=== PATIENT | male | born 1990 | race Caucasian/White ===

== ENCOUNTER 2017-02-27 09:43 | Inpatient (IN) | payer OTHER ==
[~2017-02-27] VITALS: Ht 180.3 cm; Wt 56.2 kg
--- NOTE | ~2017-02-27 | A ---
[facility] Nutrition Therapy DATE: 03/01/17 Patient: NADYA COBOS Physician: JUSTEN Address: [address] [place] [address] Room/Bed: [address], Zip: [place] [address] Admit Date: 02/27/17 Date of : [birth year] Height: 5 11 Weight: [phone] NUTRITIONAL ASSESSMENT: REASON: UNINTENTIONAL WEIGHT LOSS, LOW BMI (17.3) PATIENT ADMITTED FOR SI AND DEPRESSION PMH: NONE Anthropometrics: HT: 71", WT: 124#, BMI: 17.3 Labs: 02/28/17- ALL NUTRITIONAL LABS WNL Meds: VISTARIL, MELATONIN Assessment: PATIENT IS A 27 Y/O MALE ADMITTED FOR SI AND DEPRESSION. PATIENT IS CURRENTLY UNEMPLOYED, LIVES WITH HIS BROTHER, SMOKES 1 PPS, HAS DAILY MARIJUANA USE, AND HAS BEEN BINGE DRINKING ETOH. PER NEEDS ASSESSMENT PATIENT HAS A POOR APPETITE WITH A 60# WEIGHT LOSS OVER THE LAST 4-6 MONTHS, AND HE HAS NOT BEEN SLEEPING. NURSING REPORTS FAIR PO INTAKES. THERE IS NO WEIGHT HX RECORDED IN [place]. THERE ARE NO SKIN OR GI ISSUES NOTED ATT. PATIENT IS ON A REGULAR DIET WITH LARGE PORTION ENTREES. PATIENT'S NUTRITIONAL LABS WERE ALL WNL. Dx: INADEQUATE NUTRIENT INTAKE R/T CURRENT CONDITION, DEPRESSION AEB LW BMI, SELF-REPORTED WEIGHT LOSS AND DECREASED APPETITE, NUTRITIONAL RISK POINT Intervention: REGULAR DIET, LARGE PORTIONS, MEDS PER MD, PSYCH Monitoring, Evaluation and Goals: 1. ADEQUATE PO INTAKES >50-75% OF MEALS 2. PREVENT, CORRECT MICRO/MACRO NUTRIENT DEFICIENCIES 3. WEIGHT; PROMOTE A STEADY WEIGHT GAIN TOWARDS A HEALTHY BMI OF 19-25, PREVENT FURTHER WEIGHT LOSS MONITOR: WEIGHTS, LABS, PO/FLUID INTAKES Recommendations: 1. CONTINUE REGULAR DIET WITH LARGE PORTIONS TOLERATED. OFFER SNACKS BETWEEN MEALS 2. ENCOURAGE ADEQUATE PO AND FLUID INTAKES 3. OBTAIN WEIGHTS ROUTINELY (EVERY 3-4 DAYS) 4. IF PO INTAKES ARE BELOW 75% OF MEALS PLEASE ORDER ENSURE BID TO PROMOTE ADEQATE KCAL AND PROTEIN INTAKES [facility] Nutrition Therapy DATE: 03/01/17 Patient: NADYA COBOS Physician: JUSTEN Address: [address] [place] [address] Room/Bed: [address], Zip: [place] [address] Admit Date: 02/27/17 Date of : [birth year] Height: 5 11 Weight: [phone] TO F/U PER PROTOCOL AND PRN R/T PATIENT MILD/MODERATELY COMPROMISED Respectfully, ALEX BATRES RD, LD [facility] cc: client file
--- NOTE | ~2017-02-27 | DS ---
Unit #: [id number] #: [id number] Patient: NADYA COBOS [id number] [place] [address] [id number] MR#: [id number] NAME: NADYA COBOS ROOM: P263 Age: 27 Sex: M Admission Date: 02/27/2017 : 1990 Discharge Date: 03/02/2017 Attending Physician: Elio Goldman M.D. Primary Care Physician: Primary Care Physician No DISCHARGE SUMMARY REASON FOR ADMISSION The patient is a 27-year-old white male admitted with increasing depression and suicidal ideation. HOSPITAL COURSE The patient was admitted to the [address] [place] [address] Unit and placed on suicide precautions. Initially, the patient could not be interviewed as he had declined to leave the community bathroom on the second day of hospitalization. However, the patient was pleasant and cooperative with interview though there did seem to be a passive aggressive streak present in his presentation. He was begun on Lexapro 10 mg daily which he tolerated well. Vistaril 50 mg q. 6 hours p.r.n. anxiety was also added. The patient's stay in the hospital was an otherwise uneventful one. He was bright and euthymic and active within the therapeutic milieu. On 03/02/2017, discharge was ordered. FINAL DIAGNOSES 1. Major depressive disorder, single episode, moderate. 2. Passive aggressive personality traits. DISPOSITION ON DISCHARGE The patient was discharged on the following medications: 1. Lexapro 10 mg at bedtime for depression. 2. Vistaril 50 mg q. 6 hours p.r.n. anxiety. 3. Melatonin 5 mg at bedtime p.r.n. insomnia. DIET AND ACTIVITY No dietary or physical restrictions were placed on the patient at the time of discharge. FOLLOWUP Followup will take place through the auspices of community mental health resources in the [facility]. PROGNOSIS Good. Dictated by... Elio Goldman M.D. JAH/emmanuel Unit #: [id number] #: [id number] Patient: NADYA COBOS TD: 03/02/2017 13:41 JOB #: [id number] DISCHARGE SUMMARY Page 1 of 1 X Elio Goldman MD DISCHARGE SUMMARY
--- NOTE | ~2017-02-27 | HP ---
Unit #: [id number] #: [id number] Patient: ADRIEL COBOS [id number] [place] [address] [id number] MR#: [id number] NAME: ADRIEL COBOS ROOM: P263 Age: 27 Sex: M Admission Date: 02/27/2017 : 1990 Attending Physician: Elio Goldman M.D. Admitting Physician: Elio Goldman M.D. Primary Care Physician: Primary Care Physician No HISTORY AND PHYSICAL HISTORY OF PRESENT ILLNESS Adriel is a 27-year-old male admitted to [address] [place] [address] on 02/27/2017 for suicidal ideation. PAST MEDICAL HISTORY None. PAST SURGICAL HISTORY Tonsillectomy. SOCIAL HISTORY Smokes 1 pack of cigarettes daily, binge alcohol use, and occasional marijuana use. He is currently single and living with his brother. FAMILY HISTORY Noncontributory. REVIEW OF SYSTEMS CONSTITUTIONAL: No fever or chills. HEENT: Denies any sore throat, ear pain or runny nose. CARDIOVASCULAR: Denies chest pain, irregular heart rhythm or palpitations. CHEST: Denies shortness of breath or cough. No hemoptysis. GASTROINTESTINAL: Denies nausea, vomiting, diarrhea or chronic constipation. ENDOCRINE: Denies history of increased thirst or urination. No recent significant weight loss or gain. GENITOURINARY: Denies dysuria, frequency, or hematuria. SKIN: Denies any rashes. HEMATOLOGIC: Denies history of increased bleeding or bruising. MUSCULOSKELETAL: Denies any hot, swollen joints. No generalized muscle pain. NEUROLOGIC: Denies problems with vision or speech. No frequent, severe headaches. No numbness, tingling or weakness in any extremities. Denies loss of bladder or bowel control. CURRENT MEDICATIONS None. ALLERGIES None. PHYSICAL EXAMINATION GENERAL: Alert, oriented, no acute distress. Unit #: [id number] #: [id number] Patient: ADRIEL COBOS VITAL SIGNS: Blood pressure 114/80, heart rate 84, respirations 16, and temperature 98.1. HEIGHT: 5 feet 11. WEIGHT: 124 pounds. SKIN: Warm, dry. No rashes or lesions, track bellamy, cuts, etc. HEENT: Normocephalic. TMs not viewed. Oronasal passages clear. Conjunctivae clear. PERRLA. EOM is intact. NECK: No lymphadenopathy or thyromegaly. HEART: Regular rate and rhythm. No murmur, gallop, or rub. LUNGS: Clear to auscultation bilaterally. ABDOMEN: Soft, nontender without palpable masses or hepatosplenomegaly. : Not assessed. EXTREMITIES: No evidence of cyanosis, clubbing, or edema. Moves all extremities independently without obvious deficit. NEUROLOGICAL: Grossly within normal limits. Cranial Nerves: II: Visual amado are intact. III, IV AND : Extraocular movements are intact. Pupils are equal, round and reactive to light. V: Facial sensation is grossly normal. VII: Facial movements and expression are normal. VIII: Auditory acuity grossly intact. IX, X: Uvula is midline. Phonation is normal. XI: Patient shrugs shoulders and turns head normally. XII: Tongue protrudes in the midline. Sensory and Motor Function: Sensory and motor sensation is grossly normal. Motor: moves all extremities well. Coordination: Gait is normal. Deep Tendon Reflexes: Intact. IMPRESSION Psychiatric admission. RECOMMENDATIONS PSYCHIATRIC: Per psychiatrist. MEDICAL: No contraindication to participating in this facility's activities. MEDICAL PROGNOSIS Good. MEDICAL CONDITION Stable. Dictated by... Kurtis River TD: 02/28/2017 10:29 JOB #: [id number] Unit #: [id number] #: [id number] Patient: ADRIEL COBOS HISTORY AND PHYSICAL Page 1 of 1 X LOIS ELIAS APRN HISTORY AND PHYSICAL
--- NOTE | ~2017-02-27 | PA ---
Unit #: [id number] #: [id number] Patient: NADYA COBOS [id number] [place] [address] [id number] I MR#: [id number] NAME: NADYA COBOS ROOM: P263 Age: 27 Sex: M Admission Date: 02/27/2017 : 1990 Date of Assessment: 02/28/2017 Attending Physician: Elio Goldman M.D. Admitting Physician: Elio Goldman M.D. Primary Care Physician: Primary Care Physician No PSYCHIATRIC ASSESSMENT IDENTIFYING INFORMATION The patient is a 27-year-old white male admitted with suicidal ideation. CHIEF COMPLAINT None given. INFORMANT(S) Chart. Patient refuses to leave the bathroom for interview. HISTORY OF PRESENT ILLNESS The patient is a 27-year-old white male admitted after he presented to [facility] in [place], [place], accompanied by his mother. He was voicing positive suicidal ideation with plan to shoot himself. The patient reports multiple recent stressors. He has recently lost his job. His parents have asked him to move out of the home, and he has had a relationship breakup. There is apparently no history of psychiatric treatment in the past. The patient is currently on no prescribed or other medication. The patient does admit to "binge alcohol use" and smokes "two balls of cannabis daily." PAST PSYCHIATRIC HISTORY The patient denies prior psychiatric treatment. PAST MEDICAL HISTORY Noncontributory. MEDICATIONS None. ALLERGIES None. FAMILY HISTORY Not obtained. SOCIAL HISTORY The patient has been living with his parents but has been asked to leave that home. He has recently lost his job. He reports substance use as noted previously and is a smoker. MENTAL STATUS EXAMINATION Examination at this time cannot take place as the patient refuses to leave the community bathroom for evaluation. Unit #: [id number] #: [id number] Patient: NADYA COBOS ASSETS AND LIABILITIES The patient's assets are to be assessed. Liabilities: To be assessed. DIAGNOSTIC IMPRESSION 1. Major depressive disorder, single episode, moderate. 2. Cannabis use disorder. 3. Alcohol use disorder. TREATMENT PLAN At this point, unfortunately the patient's refusal to leave the bathroom for assessment means that initiation of medication will not be able to take place on this date. Once I am able to speak with the patient, we will discuss the risks and benefits, and initiation of antidepressant medication. I suspect that we will probably start with Lexapro. ESTIMATED LENGTH OF STAY 5 to 7 days. Dictated by... Elio Goldman M.D. [place] TD: 02/28/2017 13:25 JOB #: [id number] PSYCHIATRIC ASSESSMENT Page 1 of 1 X Elio Goldman MD X PSYCHIATRIC ASSESSMENT
--- NOTE | ~2017-02-27 | PN ---
Unit #: [id number] #: [id number] Patient: NADYA COBOS [id number] [facility] [address] [place] [address] [id number] MR#: [id number] NAME: NADYA COBOS ROOM: [facility] Age: 27 Sex: M Admission Date: 02/27/2017 : 1990 Attending Physician: Elio Goldman M.D. Admitting Physician: Elio Goldman M.D. Primary Care Physician: Primary Care Physician Blanca OVALLES PROGRESS NOTES DATE 03/01/2017 DISCUSSION The patient is interviewed today and does report symptoms of depression dating to the breakup with his girlfriend. He reports that he has had some loss of appetite and is willing to begin treatment with an antidepressant medicine. We will begin a trial of Lexapro 10 mg daily. The patient is reporting reduction in suicidal ideation during today's interview. Dictated by... Elio Goldman M.D. CB/bzjose TD: 03/01/2017 13:27 JOB #: [id number] [facility] PROGRESS NOTES Page 1 of 1 X Elio Goldman MD PROGRESS NOTE
[2017-02-28 09:49] LABS: BASOPHIL% 0.4 % (0-2.5); EOSINOPHIL# 0.1 X10e3 (0-0.7); EOSINOPHIL% 1.7 % (0.0-7.0); HEMATOCRIT 51.9 % (38.0-50.0); LYMPHOCYTE# 3.5 X10e3 (1.0-3.5); LYMPHOCYTE% 44.6 % (17.0-45.0); MEAN CELL VOLUME 90.8 FL (83-96); MEAN CORPUSCULAR HEMOGLOBIN 29.7 PG (28-34); MEAN CORPUSCULAR HGB CONC 32.7 g/dL (30-36); MEAN PLATELET VOLUME 10.1 FL (6.5-11.5); MONOCYTE# 0.7 X10e3 (0-1.0); MONOCYTE% 9.6 % (3.0-12.0); NEUTROPHIL# 3.4 X10e3 (1.5-7.1); NEUTROPHIL% 43.7 % (40-75); PLATELET COUNT 201 X10e3 (140-420); RED BLOOD COUNT 5.71 X10e (3.90-5.60); RED CELL DISTRIBUTION WIDTH 13.4 % (11.0-15.5); WHITE BLOOD COUNT 7.8 X10e3 (4.0-10.5)
[2017-02-28 09:52] LABS: DIFF IND NO
[2017-02-28 10:44] LABS: ALBUMIN SERUM 4.7 g/dL (3.5-5.0); BILIRUBIN,TOTAL 1.2 mg/dL (0.2-2.0); CALCIUM SERUM 9.8 mg/dL (8.4-10.2); GLOM FILT RATE Estimated 103.4 mL/min (>60); POTASSIUM 4.3 mmol/L (3.5-5.1); PROTEIN TOTAL SERUM 7.3 g/dL (6.0-8.3)
[2017-03-01 10:40] LABS: AMPHETAMINE NEG (NEG); BARBITURATES NEG (NEG); BENZODIAZEPINES NEG (NEG); COCAINE NEG (NEG); MARIJUANA POS (NEG); OPIATES NEG (NEG); TRICYCLIC ANTIDEPRESSANTS NEG (NEG); U METHADONE NEG (NEG)
[2017-03-01 11:23] LABS: URINE APPEARANCE CLEAR; URINE BILIRUBIN NEG (NEG); URINE BLOOD NEG (NEG); URINE COLOR YELLOW; URINE GLUCOSE NEG (NEG); URINE KETONE NEG (NEG); URINE LEUKOCYTE ESTERASE NEG (NEG); URINE NITRATE NEG (NEG); URINE PH 7.5 (5-8); URINE PROTEIN NEG (NEG); URINE SPECIFIC GRAVITY 1.013 (1.003-1.035); URINE UROBILINOGEN 0.2 MG/DL (NEG)
== END 2017-03-02 16:50 | disposition home or self-care (01) | DRG 885 ==
LOC: P2L 14:22
PROVIDERS: Specialist
DX: F32.1 Major depressive disorder, single episode, moderate (principal); R45.851 Suicidal ideations; F12.10 Cannabis abuse, uncomplicated; F10.10 Alcohol abuse, uncomplicated; F17.210 Nicotine dependence, cigarettes, uncomplicated; F60.89 Other specific personality disorders
CPT/HCPCS: 80053; 80307; 81003; 85025